=== PATIENT | female | born 1995 | race Caucasian/White ===

== ENCOUNTER → 2022-12-26 | Outpatient (CLI) | payer OTHER, SELFPAY ==
[2022-12-26 17:52] LABS: Ferritin 38 ng/mL (8-252)
[2022-12-26 17:54] LABS: T3 Total - Triiodothyronine 1.03 ng/mL (0.6-1.81)
[2022-12-28 08:13] LABS: Thyroid Peroxidase AB 24 IU/mL (0-34)
== END | disposition home or self-care (01) ==
PROVIDERS: PCP Pediatrics; Referring Provider Nurse Practitioner Family; Visit Provider Nurse Practitioner Family
DX: N92.6 Irregular menstruation, unspecified (principal); F41.9 Anxiety disorder, unspecified; G47.00 Insomnia, unspecified
CPT/HCPCS: 82728; 84480; 86376